=== PATIENT | female | born 1955 | race Caucasian/White ===

== ENCOUNTER 2017-04-15 13:15 | Outpatient (CLI) | payer BC | END 2017-04-15 13:16 | disposition home or self-care (01) | LOC: BICMAMMO 13:15 | PROVIDERS: ATTEND Obstetrics & Gynecology | DX: Z12.31 Encounter for screening mammogram for malignant neoplasm of breast (principal) | CPT/HCPCS: 77063; 77067 ==

== ENCOUNTER 2017-09-25 07:14 | Outpatient (CLI) | payer BC ==
--- NOTE | 2017-09-25 09:51 | CT ---
CT ABDOMEN AND PELVIS WITHOUT IV CONTRAST: Multiple axial tomograms obtained through the abdomen and pelvis without IV enhancement. INDICATION: Abdominal pain. History of kidney stones. There is also a history of colon cancer and gastric bypas s procedure. Colectomy. Oophorectomy. FINDINGS: Lung bases are clear. The liver, spleen, and pancreas appear unremarkable for unenhanced exam. Post operative changes involve the stomach. Gastric bypass-type procedure is noted with evidence of gastr ojejunostomy and Scol-wo-Z-type procedure. Small bowel loops are normal caliber. There is an anterior abdominal wall hernia just to the right of midline and above the umbilicus. A l oop of transverse colon herniates through this defect. The abdominal wall defect measures approximat marsha 4-5 cm width. Mesenteric fat is also seen within this defect. Hernia sac within the subcutaneou s tissues measures 6-7 cm width. Small bowel loops are normal caliber. The adrenal glands and kidneys are unremarkable. No evidence of hydronephrosis. No evidence of a ur inary tract calculus. The bladder is minimally distended and appears unremarkable. Ureters are norm al caliber. Uterus unremarkable. Aorta is normal caliber. There is a second anterior abdominal wall hernia seen in the lower abdomen in the midline and best ap preciated on the coronal images. Abdominal wall defect at this hernia is measured at 3.5 cm. Small bowel loops and mesentery herniate through this defect and there is a hernia sac within the panus of the lower abdomen containing small bowel and mesentery measuring up to 10 cm width. This hernia is l ocated at the umbilicus but a hernia sac extends into the inferior panus inferior to the umbilicus. IMPRESSION: 1. There are 2 anterior abdominal wall hernias as described above. 2. Post gastric bypass changes. 3. No evidence of a urinary tract calculus or other acute process. POS: [facility]
== END 2017-09-25 07:15 | disposition home or self-care (01) ==
LOC: CT 07:14
PROVIDERS: ATTEND Urology
DX: N20.0 Calculus of kidney (principal); K43.9 Ventral hernia without obstruction or gangrene; Z98.890 Other specified postprocedural states
CPT/HCPCS: 74176